=== PATIENT | female | born 1965 | race Caucasian/White ===

== ENCOUNTER 2018-02-28 09:54 | Emergency (ER) | payer BC ==
[2018-02-28 10:11] VITALS: BP 120/80
--- NOTE | 2018-02-28 10:35 | UC ---
[facility] HPI - HPI Summary HPI Summary: This patient has a dentist appointment scheduled for March 14. She comes in today with chief complaint of right upper and right lower dental pain. She has multiple T and multiple dental caries and broken teeth. She has been taking Ultram for pain but doesn't like it makes her feel she is here today wishing for some amoxicillin and some Tylenol with hydrocodone for the discomfort when it's not relieved with ibuprofen - History of Current Complaint Hx Obtained From: Patient ?: No Onset/Duration: Gradual Onset, Lasting Days Pain Intensity: 7 Pain Scale Used: 0-10 Numeric Aggravating Factor(s): Heat, Cold, Chewing Alleviating Factor(s): Nothing - Patient has tried Tylenol ibuprofen Anbesol, warm salt wash rince with out relief Related History: Previous Dental Care on Same Tooth <Charis Dior - Last Filed: 02/28/18 11:06> <Mary Guadarrama - Last Filed: 02/28/18 12:10> - History of Current Complaint Chief Complaint: UCDentalProblem Stated Complaint: ORAL COMPLAINT Time Seen by Provider: 02/28/18 10:29 - Allergies/Home Medications Allergies/Adverse Reactions: Allergies Allergy/AdvReac Type Severity Reaction Status Date / Time clindamycin Allergy Rash Verified 02/28/18 10:03 erythromycin base Allergy Rash Verified 02/28/18 10:03 tetracycline Allergy Rash Verified 02/28/18 10:03 PMH/Surg Hx/FS Hx/Imm Hx Previously Healthy: Yes - Surgical History Surgical History: Yes Surgery Procedure, Year, and Place: EYE MUSCLE SURGERY. TONSILS - Family History Known Family History: Positive: None - Social History Occupation: Employed Full-time Lives: With Family Alcohol Use: Rare Substance Use Type: None Smoking Status (MU): Heavy Every Day Tobacco Smoker <Charis Dior - Last Filed: 02/28/18 11:06> Review of Systems Constitutional: Negative Skin: Negative Eyes: Negative ENT: Dental Pain Respiratory: Negative Cardiovascular: Negative Gastrointestinal: Negative Genitourinary: Negative Motor: Negative Neurovascular: Negative Musculoskeletal: Negative Neurological: Negative Psychological: Negative Is Patient Immunocompromised?: No All Other Systems Reviewed And Are Negative: Yes <Charis Dior - Last Filed: 02/28/18 11:06> Physical Exam Triage Information Reviewed: Yes Appearance: Well-Appearing, No Pain Distress, Well-Nourished Vital Signs: Initial Vital Signs Temp 99.2 F 02/28/18 10:05 Pulse 82 02/28/18 10:05 Resp 12 02/28/18 10:05 BP 120/80 02/28/18 10:05 Pulse Ox 97 02/28/18 10:05 Vital Signs Reviewed: Yes Eye Exam: Normal Eyes: Positive: Conjunctiva Clear ENT Exam: Normal ENT: Positive: Normal ENT inspection, Hearing grossly normal, Pharynx normal, Pharyngeal erythema, Nasal congestion Dental Exam: Other Dental: Positive: Percussion Tenderness @, Gross Decay/Caries @, Dental Fracture @ Neck exam: Normal Neck: Positive: Supple, Nontender, No Lymphadenopathy Respiratory Exam: Normal Respiratory: Positive: Chest non-tender, Lungs clear, Normal breath sounds, No respiratory distress, No accessory muscle use Cardiovascular Exam: Normal Cardiovascular: Positive: RRR, No Murmur, Pulses Normal, Brisk Capillary Refill Musculoskeletal Exam: Normal Musculoskeletal: Positive: Strength Intact, ROM Intact, No Edema Neurological Exam: Normal Neurological: Positive: Alert, Muscle Tone Normal Psychological Exam: Normal Skin Exam: Normal <Charis Dior - Last Filed: 02/28/18 11:06> Vital Signs: Initial Vital Signs Temp 99.2 F 02/28/18 10:05 Pulse 82 02/28/18 10:05 Resp 12 02/28/18 10:05 BP 120/80 02/28/18 10:05 Pulse Ox 97 02/28/18 10:05 <Mary Guadarrama - Last Filed: 02/28/18 12:10> Dental Complaint Course/Dx - Course Course Of Treatment: ibuprofen for pain and may use 1/2-1 tylenol and hydrocodone for pain not relieved by Ibuprofen, Amoxicillin for dental infection. I encouraged patient to call the dentist to try to get her appointment sooner - Differential Dx/Diagnosis Provider Diagnoses: dental pain, nicotine dependant <Charis Dior - Last Filed: 02/28/18 11:06> Discharge - Sign-Out/Discharge Documenting (check all that apply): Discharge/Admit/Transfer - Billing Disposition and Condition Condition: STABLE Disposition: Home <Charis Dior - Last Filed: 02/28/18 11:06> - Billing Disposition and Condition Condition: STABLE Disposition: Home <Mary Guadarrama - Last Filed: 02/28/18 12:10> - Discharge Plan Condition: Stable Disposition: HOME Prescriptions: Amoxicillin PO (*) [Amoxicillin 500 MG CAP*] 500 mg PO TID #30 cap Hydrocodone/Acetaminophen [Hydrocodone-Acetamin 5-325 mg] 0.5 - 1 each PO Q4H PRN #15 tablet MDD 6 PRN Reason: Pain - Moderate To Severe Patient Education Materials: Toothache (ED) Referrals: Freddie Moulton MD [Primary Care Provider] - Additional Instructions: follow with dentist as planned Attestation Statement User Type: Provider - I was available for consult. This patient was seen by the [facility]. The patient was not presented to, seen by, or examined by me. -Toña <Mary Guadarrama - Last Filed: 02/28/18 12:10>
== END 2018-02-28 10:48 | disposition home or self-care (01) ==
LOC: UCCORT 09:54
DX: K08.89 Other specified disorders of teeth and supporting structures (principal); K02.9 Dental caries, unspecified; S02.5XXA Fracture of tooth (traumatic), initial encounter for closed fracture; F17.200 Nicotine dependence, unspecified, uncomplicated; Z88.1 Allergy status to other antibiotic agents; X58.XXXA Exposure to other specified factors, initial encounter; Y92.9 Unspecified place or not applicable
CPT/HCPCS: 99212; G0463